=== PATIENT | female | born 1990 | race Asian ===

== ENCOUNTER 2021-12-05 22:20 | Emergency (ER) | payer OTHER ==
[~2021-12-05] VITALS: Ht 162.6 cm; Wt 99.8 kg
[2021-12-05 23:56] LABS: PLATELET COUNT 346 K/uL (152-353)
[2021-12-05 23:57] LABS: POTASSIUM 3.3 mmol/L (3.6-5.2)
[2021-12-06 00:08] LABS: PARTIAL THROMBOPLASTIN TIME 27.1 SECONDS (24.5-33.6)
[2021-12-06 01:40] VITALS: BP 123/89; TEMP 98.1
== END 2021-12-06 01:40 | disposition home or self-care (01) ==
LOC: ED 22:20
PROVIDERS: Emergency Medicine
DX: R07.89 Other chest pain (principal)
CPT/HCPCS: 36415; 80053; 82550; 84484; 85027; 85379; 85610; 85730; 93005; 99283